=== PATIENT | male | born 1975 | race Caucasian/White ===

== ENCOUNTER 2017-08-19 10:28 | Emergency (ER) | payer OTHER, SELFPAY ==
[2017-08-19 10:29] VITALS: BP 131/76; PULSE 76; RESP 15; TEMP 36; BMI 25.1
--- NOTE | 2017-08-19 10:41 | RAD_ITS ---
STUDY: X-RAY - LEFT HAND REASON FOR EXAM: Male, 42 years old. Pain ossicles TECHNIQUE: view(s) of the hand. COMPARISON: None. FINDINGS: Normal radiocarpal articulation. Normal distal radioulnar joint. Normal visualized carpal bones. Normal carpal articulations Normal carpometacarpal articulation of the thumb. Normal second through fifth carpometacarpal joints. Normal metacarpi. Normal metacarpophalangeal joint of the thumb. Normal interphalangeal joint of the thumb. Normal proximal and distal phalanges of the thumb. Normal metacarpophalangeal joints of the second through fifth fingers. Normal proximal and distal interphalangeal joints of the second through fifth fingers. Normal phalanges of the second through fifth fingers. There is a age-indeterminate 1 mm sliver foreign body adjacent to the distal aspect of the third digit approximately 2.6 mm deep to the scan on the oblique view. On lateral view this is seen just anterior to the distal phalanx third digit 5 mm deep to the skin. RAD/Hand Min 3 Views IMPRESSION: No visualized acute fracture. 1 mm sliver Foreign body third digit at the level of the distal shaft of the third proximal phalanx. Electronically Signed: Mary Solis MD at 12:40 EDT Tel , Service support ,
--- NOTE | 2017-08-19 10:41 | RAD_ITS ---
STUDY: X-RAY - LEFT WRIST REASON FOR EXAM: Male, 42 years old. Pain TECHNIQUE: 3 view(s) of the wrist were obtained. COMPARISON: None. FINDINGS: Normal visualized distal radius and ulna. Normal radiocarpal articulation. Normal distal radioulnar articulation. Normal carpal bones. Normal carpal articulations. Normal carpometacarpal articulation of the thumb. Normal second through fifth carpometacarpal articulations. Normal visualized metacarpal bones. The soft tissue structures are unremarkable. RAD/Wrist min 3 Views IMPRESSION: Normal x-ray examination of the wrist. Electronically Signed: Yung Salinas DO at 12:37 EDT Tel [phone], Service support ,
--- NOTE | 2017-08-19 10:44 | ED.VISSUMM ---
- ER Visit Summary Date of Service: 08/19/17 Chief Complaint: Left hand and wrist pain History of Present Illness: The patient is a 42 M who presents complaining of pain to the left hand and wrist. He points along the ulnar aspect of his left wrist. Denies any known injury. He is right-hand dominant. He states last evening he had some mild tingling in the fourth and fifth fingers of his left hand, but is not sure if it is the way his hand was resting at the time. Past history is significant for arthritis. 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 Physical Examination: Vital signs unremarkable. Patient sitting in a bedside chair no acute distress. Left upper extremity examination significant for tenderness over the ulnar aspect of the left wrist. There is no erythema or edema. He has full range of motion. He has a strong hand grasp. There is normal sensation and cap refill distally. Test Results: Left hand and wrist x-rays were read by myself and are unremarkable. Emergency Department Course and Treatment: I explained to the patient that I am suspicious that he has irritation of the ulnar nerve. I recommended a Velcro splint, anti-inflammatory, and steroids. Patient states to just forget the splint. He states that he is going home to [place] on Sunday and will see his orthopedist there. Treatment Plan: [] Disposition: Discharge Impression: Left wrist sprain, suspect ulnar nerve irritation This note was generated with [employer] dictation software. It may contain incorrect words, spelling, and punctuation that were not noted in review of the chart prior to signing ED Disposition - Plan for ED Patient: Chief Complaint: Upper Extremity Injury
--- NOTE | 2017-08-19 11:54 | ED.DEP ---
ED Disposition - Plan for ED Patient: Disposition: Home or Assisted Living Chief Complaint: Upper Extremity Injury Instructions: ED Sprain Wrist Prescriptions: Naproxen [Naprosyn] 500 mg PO BID PRN #20 tablet Prednisone [Deltasone] 40 mg PO DAILY #10 tablet Additional Instructions: Follow-up with your physicians in [place] as discussed.
== END 2017-08-19 12:04 | disposition home or self-care (01) ==
PROVIDERS: Emergency Provider Emergency Medicine
DX: S63.592A Other specified sprain of left wrist, initial encounter (principal); M19.90 Unspecified osteoarthritis, unspecified site; Z96.649 Presence of unspecified artificial hip joint; X58.XXXA Exposure to other specified factors, initial encounter; Y93.9 Activity, unspecified; Y92.9 Unspecified place or not applicable; Y99.9 Unspecified external cause status
CPT/HCPCS: 73110; 73130; 99282